=== PATIENT | male | born 1940 | race Caucasian/White ===

== ENCOUNTER 2021-12-02 11:29 | Emergency (ER) | payer MEDICARE, BC ==
[2021-12-02 13:15] LABS: #Eosinphils 0.1 10x3/uL (0.0-0.5); #Monocytes 0.9 10x3/uL (0.0-1.1); %Basophils 0.5 % (0.0-2.0); %Eosinophils 1.4 % (0.0-6.0); %Lymphocytes 22.2 % (18.0-47.0); %Monocytes 13.6 % (0.0-10.0); Hemoglobin 11.5 g/dL (13.5-17.5); Mean Corpuscular HGB CONC 32.7 g/dL (32.0-36.0); Mean Corpuscular Hemoglobin 30.2 pg (27.0-33.0); Mean Corpuscular Volume 92.4 fl (81.2-95.1); Mean Platelet Volume 12.2 fl (7.4-10.4); Platelet Count 175 10x3/uL (150-450); RBC Distribution Width 14.3 % (11.5-14.5); Red Blood Cell (RBC) Count 3.81 10x6/uL (4.32-5.72); White Blood Cell (WBC) Count 6.4 10x3/uL (3.5-10.5)
[2021-12-02 13:31] LABS: ALT (SGPT) 54 U/L (8-55); AST (SGOT) 53 U/L (5-34); Albumin 2.7 g/dL (3.4-4.8); Alkaline Phosphatase 135 U/L (40-110); Anion Gap 11 mmol/L (10-20); BUN (Urea Nitrogen) 45 mg/dL (8.4-25.7); Bilirubin, Total 0.5 mg/dL (0.2-1.2); Calc. Creatinine Clearance 0 mL/min (70-130); Calcium 8.1 mg/dL (7.8-10.44); Carbon Dioxide 24 mmol/L (23-31); Chloride 109 mmol/L (98-107); Globulin 3.3 g/dL (2.4-3.5); Glucose 180 mg/dL (83-110); Potassium 4.4 mmol/L (3.5-5.1); Sodium 140 mmol/L (136-145)
[2021-12-02 13:54] LABS: CKMB 2.1 ng/mL (0-6.6)
[2021-12-02 14:53] LABS: Bilirubin Neg (Negative); Blood, Urine Negative (Negative); Clarity Clear (Clear); Glucose, Urine (Dipstick) 50 mg/dL (Negative); Ketone, Urine Negative (Negative); Leukocyte Negative (Negative); Nitrite Negative (Negative); Protein, Urine (Dipstick) 500 mg/dl (Neg-Trace); Specific Gravity, Urine 1.015 (1.002-1.036); Urobilinogen Normal mg/dL (Less than 2)
[2021-12-02 15:22] LABS: Bacteria/HPF None Seen HPF (None Seen); RBC/HPF 0-3 HPF (0-3); Squamous Epithelial 0-3 HPF (0-3); WBC/HPF None Seen HPF (0-3)
== END 2021-12-02 15:53 | disposition home or self-care (01) ==
LOC: CSHERS 11:29
DX: E11.22 Type 2 diabetes mellitus with diabetic chronic kidney disease (principal); I12.0 Hypertensive chronic kidney disease with stage 5 chronic kidney disease or end stage renal disease; N18.6 End stage renal disease; R53.81 Other malaise; R77.8 Other specified abnormalities of plasma proteins; R80.9 Proteinuria, unspecified; I25.10 Atherosclerotic heart disease of native coronary artery without angina pectoris; E78.5 Hyperlipidemia, unspecified; E78.00 Pure hypercholesterolemia, unspecified; Z86.73 Personal history of transient ischemic attack (TIA), and cerebral infarction without residual deficits
CPT/HCPCS: 71045; 74019; 80053; 81003; 81015; 82274; 82553; 83605; 84484; 85025; 86850; 86900; 86901; 93005; 94760

== ENCOUNTER 2021-12-25 16:19 | Emergency (ER) | payer MEDICARE, BC ==
[2021-12-25] MEDS ORDERED: Ondansetron PF 4 MG/2 ML Vial ONE (18:08)
[2021-12-25] MEDS ORDERED: Morphine 4 MG/ML VIAL ONE (18:08)
[2021-12-25 18:33] LABS: #Eosinphils 0.1 10x3/uL (0.0-0.5); #Monocytes 0.9 10x3/uL (0.0-1.1); %Basophils 0.6 % (0.0-2.0); %Eosinophils 1.4 % (0.0-6.0); %Lymphocytes 24.4 % (18.0-47.0); %Monocytes 13.1 % (0.0-10.0); Hemoglobin 11.6 g/dL (13.5-17.5); Mean Corpuscular HGB CONC 33.2 g/dL (32.0-36.0); Mean Corpuscular Hemoglobin 30.6 pg (27.0-33.0); Mean Corpuscular Volume 92.1 fl (81.2-95.1); Mean Platelet Volume 12.3 fl (7.4-10.4); Platelet Count 143 10x3/uL (150-450); RBC Distribution Width 15.2 % (11.5-14.5); Red Blood Cell (RBC) Count 3.79 10x6/uL (4.32-5.72); White Blood Cell (WBC) Count 6.6 10x3/uL (3.5-10.5)
[2021-12-25 18:47] LABS: ALT (SGPT) 40 U/L (8-55); AST (SGOT) 40 U/L (5-34); Albumin 2.8 g/dL (3.4-4.8); Alkaline Phosphatase 117 U/L (40-110); Anion Gap 12 mmol/L (10-20); BUN (Urea Nitrogen) 48 mg/dL (8.4-25.7); Bilirubin, Total 0.5 mg/dL (0.2-1.2); Calc. Creatinine Clearance 0 mL/min (70-130); Calcium 8.1 mg/dL (7.8-10.44); Carbon Dioxide 21 mmol/L (23-31); Chloride 110 mmol/L (98-107); Globulin 3.5 g/dL (2.4-3.5); Glucose 158 mg/dL (83-110); Potassium 5.2 mmol/L (3.5-5.1); Protein, Total 6.3 g/dL (5.8-8.1); Sodium 138 mmol/L (136-145)
[2021-12-25 19:23] LABS: Bilirubin Neg (Negative); Blood, Urine Negative (Negative); Clarity Clear (Clear); Glucose, Urine (Dipstick) 100 mg/dL (Negative); Ketone, Urine Negative (Negative); Leukocyte Negative (Negative); Nitrite Negative (Negative); Protein, Urine (Dipstick) 100 mg/dl (Neg-Trace); Urobilinogen Normal mg/dL (Less than 2); pH, Urine 6.5 (5.0-9.0)
[2021-12-25 19:33] LABS: Bacteria/HPF None Seen HPF (None Seen); RBC/HPF 0-3 HPF (0-3); Squamous Epithelial 0-3 HPF (0-3); WBC/HPF 0-3 HPF (0-3)
== END 2021-12-25 21:41 | disposition home or self-care (01) ==
LOC: CSHERS 16:19
DX: R53.1 Weakness (principal); M54.50 Low back pain, unspecified; K21.9 Gastro-esophageal reflux disease without esophagitis; I12.0 Hypertensive chronic kidney disease with stage 5 chronic kidney disease or end stage renal disease; N18.6 End stage renal disease; E11.22 Type 2 diabetes mellitus with diabetic chronic kidney disease; E78.5 Hyperlipidemia, unspecified; Z86.73 Personal history of transient ischemic attack (TIA), and cerebral infarction without residual deficits; Z79.899 Other long term (current) drug therapy; Z79.82 Long term (current) use of aspirin
CPT/HCPCS: 36415; 71045; 74150; 80048; 81003; 81015; 82274; 83880; 84484; 85025; 93005; J2270; J2405

== ENCOUNTER 2023-04-09 13:43 | Inpatient (IN) | payer MEDICARE, BC ==
[2023-04-09 14:25] LABS: #Basophils 0.1 10x3/uL (0.0-0.2); #Eosinphils 0.1 10x3/uL (0.0-0.5); #Monocytes 1.3 10x3/uL (0.0-1.1); #Neutrophils 13.8 10x3/uL (1.5-8.4); %Basophils 0.3 % (0.0-2.0); %Eosinophils 0.8 % (0.0-6.0); %Lymphocytes 9.9 % (18.0-47.0); %Monocytes 7.8 % (0.0-10.0); %Neutrophils 80.6 % (40.0-75.0); Hematocrit 21.5 % (38.8-50.0); Hemoglobin 7.3 g/dL (13.5-17.5); Mean Corpuscular Volume 94.3 fl (81.2-95.1); Mean Platelet Volume 11.3 fl (7.4-10.4); Platelet Count 290 10x3/uL (150-450); RBC Distribution Width 15.3 % (11.5-14.5); Red Blood Cell (RBC) Count 2.28 10x6/uL (4.32-5.72); White Blood Cell (WBC) Count 17.2 10x3/uL (3.5-10.5)
[2023-04-09 14:49] LABS: ALT (SGPT) Less than 7 U/L (8-55); AST (SGOT) 27 U/L (5-34); Albumin 2.4 g/dL (3.4-4.8); Alkaline Phosphatase 104 U/L (40-110); Anion Gap 26 mmol/L (10-20); Bilirubin, Total 0.4 mg/dL (0.2-1.2); Calc. Creatinine Clearance 0 mL/min (70-130); Calcium 7.3 mg/dL (7.8-10.44); Carbon Dioxide 13 mmol/L (23-31); Chloride 96 mmol/L (98-107); Estimated GFR 5; Globulin 3.7 g/dL (2.4-3.5); Glucose 168 mg/dL (83-110); Magnesium 2.4 mg/dL (1.6-2.6); Potassium 5.8 mmol/L (3.5-5.1); Protein, Total 6.1 g/dL (5.8-8.1); Sodium 129 mmol/L (136-145)
[2023-04-09 14:58] LABS: BUN (Urea Nitrogen) 147 mg/dL (8.4-25.7)
[2023-04-09] MEDS ORDERED: Sodium Bicarb 50 MEQ/50 ML Abboject 8.4% SYRINGE ONE ×2 (15:10→15:11)
[2023-04-09] MEDS ORDERED: Calcium Chloride 1 GM/10 ML Abboject SYRINGE ONE (15:10)
[2023-04-09] MEDS ORDERED: Dextrose 50% Abboject 50 ML SYRINGE ONE (15:11)
[2023-04-09] MEDS ORDERED: Piperacillin/Tazobactam 3.375 GM VIAL ONE (15:11)
[2023-04-09] MEDS ORDERED: Insulin Regular 300 UNITS/3 ML VIAL ONE (15:12)
[2023-04-09] MEDS ORDERED: cefTRIAXone (ROCEPHIN) 2 GM VIAL ONE (15:12)
[2023-04-09 16:17] LABS: Bilirubin Neg (Negative); Blood, Urine Negative (Negative); Clarity Clear (Clear); Glucose, Urine (Dipstick) Normal (Negative); Ketone, Urine Negative (Negative); Leukocyte Negative (Negative); Nitrite Negative (Negative); Protein, Urine (Dipstick) 30 mg/dl (Neg-Trace); Specific Gravity, Urine 1.015 (1.005-1.030); Urobilinogen Normal mg/dL (Less than 2)
[2023-04-09 16:46] LABS: Bacteria/HPF 2+ HPF (None Seen); CAUTI Indications for Culture Alt mental st,lethar; RBC/HPF 0-3 HPF (0-3); Squamous Epithelial 0-3 HPF (0-3); Transitional Epithelial 0-3 HPF (None Seen); Urine Culture Reflex No No; WBC/HPF 0-3 HPF (0-3)
[2023-04-09] MEDS ORDERED: Insulin Regular 300 UNITS/3 ML VIAL SC PRN (17:48)
[2023-04-09] MEDS ORDERED: Dextrose 5% in Water 1,000 ML IV PRN (17:48)
[2023-04-09] MEDS ORDERED: Glucagon 1 MG/ML KIT IM PRN (17:48)
[2023-04-09] MEDS ORDERED: Dextrose 50% Abboject 50 ML SYRINGE SLOW IVP PRN (17:48)
[2023-04-09 19:49] LABS: INR-International Normal Ratio 1.1; PTT 30.9 sec (22.0-33.0)
[2023-04-09] MEDS ORDERED: Heparin 5,000 UNITS/ML VIAL SC SCH (21:00)
[2023-04-09] MEDS: CEFAZOLIN 1 GM in Sodium Chloride 0.9% 100 ML IVPB SCH (21:43)
[2023-04-10 05:33] LABS: #Basophils 0.1 10x3/uL (0.0-0.2); #Eosinphils 0.1 10x3/uL (0.0-0.5); #Monocytes 1.1 10x3/uL (0.0-1.1); #Neutrophils 12.6 10x3/uL (1.5-8.4); %Basophils 0.4 % (0.0-2.0); %Eosinophils 0.8 % (0.0-6.0); %Lymphocytes 8.9 % (18.0-47.0); %Monocytes 7.4 % (0.0-10.0); %Neutrophils 81.8 % (40.0-75.0); Hematocrit 19.9 % (38.8-50.0); Hemoglobin 6.8 g/dL (13.5-17.5); Mean Corpuscular HGB CONC 34.2 g/dL (32.0-36.0); Mean Corpuscular Hemoglobin 31.9 pg (27.0-33.0); Mean Corpuscular Volume 93.4 fl (81.2-95.1); Mean Platelet Volume 10.9 fl (7.4-10.4); Platelet Count 236 10x3/uL (150-450); RBC Distribution Width 15.1 % (11.5-14.5); Red Blood Cell (RBC) Count 2.13 10x6/uL (4.32-5.72); White Blood Cell (WBC) Count 15.4 10x3/uL (3.5-10.5)
[2023-04-10 05:49] LABS: Anion Gap 23 mmol/L (10-20); BUN (Urea Nitrogen) 104 mg/dL (8.4-25.7); Calc. Creatinine Clearance 10 mL/min (70-130); Calcium 7.6 mg/dL (7.8-10.44); Carbon Dioxide 19 mmol/L (23-31); Chloride 98 mmol/L (98-107); Estimated GFR 7; Glucose 116 mg/dL (83-110); Potassium 4.5 mmol/L (3.5-5.1); Sodium 135 mmol/L (136-145)
[2023-04-10] MEDS ORDERED: Heparin 10,000 UNITS/ 10 ML VIAL SLOW IVP PRN (15:11)
[2023-04-10] MEDS: CEFAZOLIN 1 GM in Sodium Chloride 0.9% 100 ML IVPB SCH (22:23)
[2023-04-10] MEDS: Acetaminophen 325 MG TAB PO PRN (22:24)
[2023-04-11 05:06] LABS: #Eosinphils 0.1 10x3/uL (0.0-0.5); #Monocytes 1.4 10x3/uL (0.0-1.1); #Neutrophils 11.4 10x3/uL (1.5-8.4); %Basophils 0.3 % (0.0-2.0); %Eosinophils 0.6 % (0.0-6.0); %Lymphocytes 9.5 % (18.0-47.0); %Monocytes 9.5 % (0.0-10.0); %Neutrophils 79.3 % (40.0-75.0); Hematocrit 24.3 % (38.8-50.0); Hemoglobin 8.2 g/dL (13.5-17.5); Mean Corpuscular HGB CONC 33.7 g/dL (32.0-36.0); Mean Corpuscular Hemoglobin 31.3 pg (27.0-33.0); Mean Corpuscular Volume 92.7 fl (81.2-95.1); Mean Platelet Volume 10.7 fl (7.4-10.4); Platelet Count 232 10x3/uL (150-450); Red Blood Cell (RBC) Count 2.62 10x6/uL (4.32-5.72); White Blood Cell (WBC) Count 14.3 10x3/uL (3.5-10.5)
[2023-04-11 05:13] LABS: Anion Gap 18 mmol/L (10-20); BUN (Urea Nitrogen) 83 mg/dL (8.4-25.7); Calc. Creatinine Clearance 12 mL/min (70-130); Calcium 7.6 mg/dL (7.8-10.44); Carbon Dioxide 24 mmol/L (23-31); Chloride 100 mmol/L (98-107); Estimated GFR 10; Glucose 160 mg/dL (83-110); Potassium 4.2 mmol/L (3.5-5.1); Sodium 138 mmol/L (136-145)
[2023-04-11] MEDS ORDERED: Ondansetron PF 4 MG/2 ML Vial IVP PRN (08:01)
[2023-04-11] MEDS ORDERED: NIFEdipine XL 30 MG TAB PO SCH (09:00)
[2023-04-11] MEDS: Carvedilol 6.25 MG TAB PO SCH ×3 (11:35→20:15)
[2023-04-11] MEDS: Cholecalciferol 1,000 UNITS (25 MCG) TAB PO SCH (11:35)
[2023-04-11] MEDS: Atorvastatin Calcium 40 MG TAB PO SCH (11:35)
[2023-04-11] MEDS: Aspirin 81 mg Enteric Coated Tablet PO SCH (11:35)
[2023-04-11] MEDS: Acetaminophen 325 MG TAB PO PRN (11:36)
[2023-04-12] MEDS: CEFAZOLIN 1 GM in Sodium Chloride 0.9% 100 ML IVPB SCH ×2 (00:17→21:39)
[2023-04-12 05:26] LABS: #Eosinphils 0.1 10x3/uL (0.0-0.5); #Monocytes 1.5 10x3/uL (0.0-1.1); #Neutrophils 13.4 10x3/uL (1.5-8.4); %Basophils 0.2 % (0.0-2.0); %Eosinophils 0.7 % (0.0-6.0); %Lymphocytes 9.4 % (18.0-47.0); %Monocytes 8.7 % (0.0-10.0); %Neutrophils 80.1 % (40.0-75.0); Hematocrit 20.8 % (38.8-50.0); Hemoglobin 6.7 g/dL (13.5-17.5); Mean Corpuscular HGB CONC 32.2 g/dL (32.0-36.0); Mean Corpuscular Hemoglobin 31.5 pg (27.0-33.0); Mean Corpuscular Volume 97.7 fl (81.2-95.1); Mean Platelet Volume 11.3 fl (7.4-10.4); Platelet Count 212 10x3/uL (150-450); RBC Distribution Width 16.6 % (11.5-14.5); Red Blood Cell (RBC) Count 2.13 10x6/uL (4.32-5.72); White Blood Cell (WBC) Count 16.7 10x3/uL (3.5-10.5)
[2023-04-12 05:36] LABS: Anion Gap 20 mmol/L (10-20); BUN (Urea Nitrogen) 72 mg/dL (8.4-25.7); Calc. Creatinine Clearance 14 mL/min (70-130); Calcium 7.7 mg/dL (7.8-10.44); Carbon Dioxide 24 mmol/L (23-31); Chloride 100 mmol/L (98-107); Estimated GFR 12; Glucose 134 mg/dL (83-110); Potassium 4.7 mmol/L (3.5-5.1); Sodium 139 mmol/L (136-145)
[2023-04-12] MEDS: Cholecalciferol 1,000 UNITS (25 MCG) TAB PO SCH (08:25)
[2023-04-12] MEDS: Aspirin 81 mg Enteric Coated Tablet PO SCH (08:25)
[2023-04-12] MEDS: Carvedilol 6.25 MG TAB PO SCH ×2 (08:25→21:40)
[2023-04-12] MEDS: Atorvastatin Calcium 40 MG TAB PO SCH (08:25)
[2023-04-12] MEDS: NIFEdipine XL 30 MG TAB PO SCH (08:26)
[2023-04-12 13:47] LABS: HBSAg Index 0.29 S/CO (0-0.99); Hep B Surf Ag Non-Reactive S/CO (NonReactive)
[2023-04-12 17:08] LABS: HBSAB Concentration Less than 8.00 mIU/mL; Hep B Core Total Ab Non-Reactive (NonReactive); Hep B Core Total Index 0.24 S/CO (0-0.79); Hep B Surf AB Non-Reactive (NonReactive)
[2023-04-12 17:12] LABS: Hep C IgG Ab Reflex HepC Qnt S/CO (NonReactive); Hep C Index 14.38 S/CO (0-0.79)
[2023-04-13 05:49] LABS: Anion Gap 16 mmol/L (10-20); BUN (Urea Nitrogen) 60 mg/dL (8.4-25.7); Calc. Creatinine Clearance 15 mL/min (70-130); Calcium 7.7 mg/dL (7.8-10.44); Carbon Dioxide 25 mmol/L (23-31); Chloride 100 mmol/L (98-107); Estimated GFR 12; Glucose 147 mg/dL (83-110); Potassium 4.3 mmol/L (3.5-5.1); Sodium 137 mmol/L (136-145)
[2023-04-13 06:03] LABS: #Eosinphils 0.2 10x3/uL (0.0-0.5); #Monocytes 1.2 10x3/uL (0.0-1.1); #Neutrophils 11.5 10x3/uL (1.5-8.4); %Basophils 0.3 % (0.0-2.0); %Eosinophils 1.2 % (0.0-6.0); %Lymphocytes 9.7 % (18.0-47.0); %Monocytes 8.2 % (0.0-10.0); %Neutrophils 79.4 % (40.0-75.0); Hematocrit 23.7 % (38.8-50.0); Hemoglobin 7.8 g/dL (13.5-17.5); Mean Corpuscular HGB CONC 32.9 g/dL (32.0-36.0); Mean Corpuscular Hemoglobin 30.4 pg (27.0-33.0); Mean Corpuscular Volume 92.2 fl (81.2-95.1); Mean Platelet Volume 10.7 fl (7.4-10.4); Platelet Count 191 10x3/uL (150-450); RBC Distribution Width 19.7 % (11.5-14.5); Red Blood Cell (RBC) Count 2.57 10x6/uL (4.32-5.72); White Blood Cell (WBC) Count 14.5 10x3/uL (3.5-10.5)
[2023-04-13] MEDS: Acetaminophen 325 MG TAB PO PRN ×2 (07:44→20:51)
[2023-04-13] MEDS: Atorvastatin Calcium 40 MG TAB PO SCH (08:32)
[2023-04-13] MEDS: Aspirin 81 mg Enteric Coated Tablet PO SCH (08:32)
[2023-04-13] MEDS: Cholecalciferol 1,000 UNITS (25 MCG) TAB PO SCH (08:33)
[2023-04-13] MEDS: NIFEdipine XL 30 MG TAB PO SCH (08:33)
[2023-04-13] MEDS: Carvedilol 6.25 MG TAB PO SCH ×2 (08:33→23:13)
[2023-04-13] MEDS ORDERED: Morphine 2 MG/ML VIAL SLOW IVP SCH ×2 (14:00)
[2023-04-13 17:42] LABS: Magnesium 1.9 mg/dL (1.6-2.6)
[2023-04-13] MEDS: Morphine 4 MG/ML VIAL SLOW IVP PRN (20:51)
[2023-04-13] MEDS: CEFAZOLIN 1 GM in Sodium Chloride 0.9% 100 ML IVPB SCH (23:13)
[2023-04-14] MEDS ORDERED: Haloperidol Lactate 5 MG/ML VIAL SLOW IVP SCH (00:45)
[2023-04-14 04:21] LABS: #Eosinphils 0.2 10x3/uL (0.0-0.5); #Neutrophils 9.9 10x3/uL (1.5-8.4); %Basophils 0.3 % (0.0-2.0); %Eosinophils 1.8 % (0.0-6.0); %Lymphocytes 11.2 % (18.0-47.0); %Monocytes 7.5 % (0.0-10.0); %Neutrophils 78.6 % (40.0-75.0); Hematocrit 22.8 % (38.8-50.0); Hemoglobin 7.4 g/dL (13.5-17.5); Mean Corpuscular HGB CONC 32.5 g/dL (32.0-36.0); Mean Corpuscular Hemoglobin 30.8 pg (27.0-33.0); Mean Platelet Volume 11.5 fl (7.4-10.4); Platelet Count 184 10x3/uL (150-450); RBC Distribution Width 19.5 % (11.5-14.5); White Blood Cell (WBC) Count 12.6 10x3/uL (3.5-10.5)
[2023-04-14 04:34] LABS: ALT (SGPT) Less than 7 U/L (8-55); AST (SGOT) 32 U/L (5-34); Albumin 2.1 g/dL (3.4-4.8); Alkaline Phosphatase 94 U/L (40-110); Anion Gap 14 mmol/L (10-20); BUN (Urea Nitrogen) 51 mg/dL (8.4-25.7); Bilirubin, Total 0.6 mg/dL (0.2-1.2); Calc. Creatinine Clearance 17 mL/min (70-130); Calcium 7.4 mg/dL (7.8-10.44); Carbon Dioxide 27 mmol/L (23-31); Chloride 100 mmol/L (98-107); Estimated GFR 14; Globulin 3.1 g/dL (2.4-3.5); Glucose 157 mg/dL (83-110); Potassium 4.3 mmol/L (3.5-5.1); Protein, Total 5.2 g/dL (5.8-8.1); Sodium 137 mmol/L (136-145)
[2023-04-14] MEDS: NIFEdipine XL 30 MG TAB PO SCH (08:42)
[2023-04-14] MEDS: Cholecalciferol 1,000 UNITS (25 MCG) TAB PO SCH (08:42)
[2023-04-14] MEDS: Aspirin 81 mg Enteric Coated Tablet PO SCH (08:42)
[2023-04-14] MEDS: Atorvastatin Calcium 40 MG TAB PO SCH (08:42)
[2023-04-14] MEDS: Carvedilol 6.25 MG TAB PO SCH ×2 (08:42→22:23)
[2023-04-14] MEDS: Morphine 4 MG/ML VIAL SLOW IVP PRN (22:05)
[2023-04-14] MEDS: CEFAZOLIN 1 GM in Sodium Chloride 0.9% 100 ML IVPB SCH (22:06)
[2023-04-14] MEDS: Acetaminophen 325 MG TAB PO PRN (22:13)
[2023-04-15 04:40] LABS: Albumin 2.2 g/dL (3.4-4.8); Anion Gap 18 mmol/L (10-20); BUN (Urea Nitrogen) 73 mg/dL (8.4-25.7); BUN/Creatinine Ratio 14.17; Calc. Creatinine Clearance 13 mL/min (70-130); Calcium 7.4 mg/dL (7.8-10.44); Carbon Dioxide 24 mmol/L (23-31); Chloride 99 mmol/L (98-107); Estimated GFR 10; Glucose 153 mg/dL (83-110); Phosphorus 6.4 mg/dL (2.3-4.7); Potassium 4.7 mmol/L (3.5-5.1); Sodium 136 mmol/L (136-145)
[2023-04-15] MEDS: Cholecalciferol 1,000 UNITS (25 MCG) TAB PO SCH (08:33)
[2023-04-15] MEDS: Aspirin 81 mg Enteric Coated Tablet PO SCH (08:33)
[2023-04-15] MEDS: Atorvastatin Calcium 40 MG TAB PO SCH (08:33)
[2023-04-15] MEDS: NIFEdipine XL 30 MG TAB PO SCH (08:33)
[2023-04-15] MEDS: Carvedilol 6.25 MG TAB PO SCH (08:34)
[2023-04-15] MEDS: Morphine 4 MG/ML VIAL SLOW IVP PRN (08:44)
[2023-04-15 12:11] VITALS: BP 100/46; TEMP 98.3
[2023-04-15] MEDS ORDERED: QUEtiapine 25 MG TAB PO SCH (13:00)
[2023-04-15] MEDS: Acetaminophen 325 MG TAB PO PRN (13:25)
[2023-04-16 19:14] LABS: HCV RNA, log10 6.079 (.); Hep C PCR-Quant 1200000 IU/mL (.)
== END 2023-04-15 13:29 | disposition hospice, home (50) | DRG 871 ==
LOC: CSHERS 13:43 → CSHTELE 16:32 → OBSVTOIN 17:44
PROVIDERS: ADMIT Family Medicine; ATTEND Internal Medicine
PROC: 30233N1 Transfusion of Nonautologous Red Blood Cells into Peripheral Vein, Percutaneous Approach (ICD-10-PCS; principal; 2023-04-10)
PROC: 3E03329 Introduction of Other Anti-infective into Peripheral Vein, Percutaneous Approach (ICD-10-PCS; 2023-04-10)
DX: R78.81 Bacteremia (principal); N18.6 End stage renal disease; S72.001A Fracture of unspecified part of neck of right femur, initial encounter for closed fracture; I12.0 Hypertensive chronic kidney disease with stage 5 chronic kidney disease or end stage renal disease; E87.20 Acidosis, unspecified; N17.9 Acute kidney failure, unspecified; J81.1 Chronic pulmonary edema; Z66 Do not resuscitate; Z51.5 Encounter for palliative care; B95.61 Methicillin susceptible Staphylococcus aureus infection as the cause of diseases classified elsewhere; B95.4 Other streptococcus as the cause of diseases classified elsewhere; E11.22 Type 2 diabetes mellitus with diabetic chronic kidney disease; K21.9 Gastro-esophageal reflux disease without esophagitis; E78.5 Hyperlipidemia, unspecified; I25.10 Atherosclerotic heart disease of native coronary artery without angina pectoris; E87.8 Other disorders of electrolyte and fluid balance, not elsewhere classified; D63.1 Anemia in chronic kidney disease; R13.12 Dysphagia, oropharyngeal phase; E87.6 Hypokalemia; D72.829 Elevated white blood cell count, unspecified; E66.9 Obesity, unspecified; R53.81 Other malaise; Z68.27 Body mass index [BMI] 27.0-27.9, adult; Z98.890 Other specified postprocedural states; Z79.82 Long term (current) use of aspirin; Z86.73 Personal history of transient ischemic attack (TIA), and cerebral infarction without residual deficits
CPT/HCPCS: 36415; 36416; 36430; 71045; 80048; 80053; 80069; 81001; 82274; 83605; 83735; 83880; 84484; 85025; 85610; 85730; 86704; 86850; 86900; 86901; 87040; 87086; 87522; 90935; 93005; 96374; 96375; G0257; J0690; J0696; J1630; J1644; J1815; J2270; J2405; J2543; J3490; J7999; P9016